=== PATIENT | female | born 1945 | race Caucasian/White ===

== ENCOUNTER 2021-05-23 21:03 | Emergency (ER) | payer MEDICARE, OTHER ==
[~2021-05-23] VITALS: Ht 154.9 cm; Wt 48.5 kg
--- NOTE | 2021-05-23 21:59 | Diagnostic Imaging Report ---
INDICATION: Right lower leg pain. EXAMINATION: AP and lateral views of the right tibia-fibula. No acute fracture or dislocation. Patient has had a prior right knee arthroplasty. IMPRESSION: No acute abnormality is seen in the right lower leg. Dictated by: Dictated on workstation # [id number]
--- NOTE | 2021-05-23 22:23 | ED Lower Extremity ---
General Chief Complaint: Lower Extremity Stated Complaint: R ANKLE INJ Nursing Triage Note: PT TO ROOM FS OF VIA W/C WITH C/O RIGHT ANKLE AND RIGHT EGAN PAIN. PT STATES THAT SHE WAS WALKING AND THE RIGHT LOWER LEG STARTED HURTING. PT DENIES ANY OTHER C/O. PT'S SON IN ROOM Source: patient, family Exam Limitations: no limitations History of Present Illness Date Seen by Provider: May 23, 2021 Time Seen by Provider: 21:10 Initial Comments 76-year-old female with past medical history of dementia coming in with her son due to right ankle pain. The patient states that she twisted her ankle couple days ago and is having right lateral ankle pain that is moderate, intermittent, and worse when she tries to ambulate. She has reportedly been walking. Taking Tylenol for pain. Denies any swelling up her leg, or any previous history of DVT. She is otherwise denying any other acute complaints. She reportedly never fell or hit her head, and did not pass out. She is denying any headache. Per her son, she is at her mental baseline. Allergies and Home Medications Allergies Coded Allergies: No Known Drug Allergies (Unverified , 05/23/21) Patient Home Medication List Home Medication List Reviewed: Yes Review of Systems Constitutional: No fever EENTM: No blurred vision Respiratory: No cough, No short of breath Cardiovascular: No chest pain Gastrointestinal: No abdominal pain Genitourinary: No dysuria, No frequency Musculoskeletal: No back pain; joint pain Skin: No rash Psychiatric/Neurological: Denies Anxiety All Other Systems Reviewed Negative Unless Noted: Yes Past Tnmrqlp-Omuzab-Iimcoy Hx Patient Social History Tobacco Use?: No Smoking Status: Never a Smoker Substance use?: No Alcohol Use?: No Pt feels they are or have been: No Physical Exam Vital Signs Vital Signs - First Documented 05/23/21 21:25 Temp 36.5 Pulse 66 Resp 16 B/P (MAP) 127/55 (79) O2 Delivery Room Air Capillary Refill : Less Than 3 Seconds Height, Weight, BMI Height: '" Weight: lbs. oz. kg; 20.00 BMI Method: General Appearance: WD/WN, no apparent distress HEENT: PERRL/EOMI, normal ENT inspection, pharynx normal Neck: non-tender, full range of motion, supple, normal inspection Cardiovascular: regular rate, rhythm, no edema, no murmur Respiratory: chest non-tender, lungs clear, normal breath sounds, no respiratory distress, no accessory muscle use Gastrointestinal: normal bowel sounds, non tender, soft; No guarding Back: normal inspection Ankles: left ankle non-tender, left ankle normal inspection; bilateral ankle n ormal range of motion (Right ankle tender along the lateral malleolus with maximal tenderness over the ATFL ligament, no tenderness over the proximal fibula, no tibia tenderness, no fifth metatarsal tenderness, no calcaneal tenderness, no Lisfranc tenderness or Achilles tenderness, 5 out of 5 strength with dorsiflexion and plantarflexion on the right foot, normal distal sensation and capillary refill, no peripheral edema or tenderness with calf squeeze); right ankle bone tenderness, right ankle pain, right ankle soft tissue tenderness, right ankle swelling Neurologic/Tendon: normal sensation, normal motor functions Neurologic/Psychiatric: no motor/sensory deficits, alert, normal mood/affect Skin: normal color, warm/dry Lymphatic: no adenopathy Progress/Results/Core Measures Results/Orders My Orders Orders - MARLENA FONTAINE MD Tibia Fibula 2 View Right (05/23/21 21:37) Vital Signs/I&O 05/23/21 21:25 Temp 36.5 Pulse 66 Resp 16 B/P (MAP) 127/55 (79) O2 Delivery Room Air Blood Pressure Mean: 79 Progress Progress Note : Progress Note 76-year-old female with above history coming in after she twisted her right ankle couple days ago. ABCs were intact and vitals were stable on presentation. Maximal tenderness over the ATFL tendon. She does have some tenderness over the lateral malleolus. X-ray ordered and interpreted by me showing no fracture. She was given a boot for comfort. She was able to ambulate without the boot, and I have low concern for occult fracture. Given that the injury was very acute, low concern for DVT as well. Additionally, she does not have any unequal swelling, redness, or calf tenderness. I believe she is stable for discharge. She was sent home with strict return precautions. Diagnostic Imaging Diagonstic Imaging: Xray Plain Films/CT/US/NM/MRI: leg Comments [facility]. [place], [place] NAME: OC IVAN [facility] REC#: [id number] PT STATUS: REG ER : 1945 PHYSICIAN: MARLENA FONTAINE MD ADMIT DATE: 05/23/21/ER FS Signed Date of Exam:05/23/21 TIBIA FIBULA 2 VIEW RIGHT INDICATION: Right lower leg pain. EXAMINATION: AP and lateral views of the right tibia-fibula. No acute fracture or dislocation. Patient has had a prior right knee arthroplasty. IMPRESSION: No acute abnormality is seen in the right lower leg. Dictated by: Dictated on workstation # [id number] Dict: 05/23/212155 Trans: 05/23/212201 E [id number] Interpreted by: SUBHASH FLORES MD Electronically signed by: SUBHASH FLORES MD 05/23/212201 Departure Impression Primary Impression: Right ankle pain Qualified Codes: M25.571 - Pain in right ankle and joints of right foot Disposition: 01 HOME, SELF-CARE Condition: Stable Departure-Patient Inst. Decision time for Depature: 22:22 Referrals: NO,LOCAL PHYSICIAN (PCP/Family) Primary Care Physician Patient Instructions: Ankle Sprain ED Add. Discharge Instructions: You were seen in the emergency department for ankle pain. X-rays were negative for any fracture. We gave you a boot for comfort. You can wear this if it helps you walk. Otherwise try to use a walker and keep off of this leg. If you have any redness or swelling going up your leg then we will need you to be seen in the emergency department again. They have any other concerns then please come back to the ER. All discharge instructions reviewed with patient and/or family. Voiced understanding. MARLENA FONTAINE MD May 23, 2021 22:23
[2021-05-23 22:35] VITALS: BP 119/64
== END 2021-05-23 22:35 | disposition home or self-care (01) ==
LOC: ER FS 21:05
DX: M25.571 Pain in right ankle and joints of right foot (principal)
CPT/HCPCS: 73590

== ENCOUNTER 2022-03-31 10:55 | Emergency (ER) | payer MEDICARE, MEDICAID ==
[~2022-03-31] VITALS: Ht 152.4 cm; Wt 49.9 kg
--- NOTE | 2022-03-31 11:34 | ED General ---
General Chief Complaint: Glucose Problems Nursing Triage Note: PT TO ROOM FS06 [facility]IA [facility] WITH C/O HYPOGLYCEMIA. EMS REPORTS PT BLOOD GLUCOSE OF 39 UPON THEIR ARRIVAL. EMS REPORTS GIVING PT AN AMP OF D50 WHICH RAISED BLOOD GLUCOSE TO 336. PT BLOOD GLUCOSE OF 219 UPON ARRIVAL. EMS STATES PT IS AT BASELINE FUNCTIONING. History of Present Illness Date Seen by Provider: Mar 31, 2022 Time Seen by Provider: 11:31 Initial Comments 77-year-old female [facility] resident has history of dementia. Patient was found unresponsive this morning and was noted to have a blood sugar of 39. She does take glipizide and metformin for diabetes. I am unsure if she took that this morning or not. They did in route to give her D50 and patient is now back at baseline. Blood sugar was over 200 are checked here. There is report that she did fall last night. Patient does complain of pain in the left leg when palpated. She is moving around. Otherwise patient does answer questions but states that she cannot remember things. No chest pain. No trouble breathing. Associated Systoms: Denies Symptoms Allergies and Home Medications Allergies Coded Allergies: No Known Drug Allergies (Unverified , 05/23/21) Patient Home Medication List Home Medication List Reviewed: Yes Review of Systems Review of Systems Constitutional: see HPI Past Rhrytzp-Hifvdc-Wsiogz Hx Patient Social History Tobacco Use?: No Smoking Status: Never a Smoker Smokeless Tobacco Frequency: Never a User Use of E-Cig and/or Vaping dev: No Use of E-Cig and/or Vaping Claudio: Never a User Substance use?: No Alcohol Use?: No Pt feels they are or have been: No Physical Exam Vital Signs Vital Signs - First Documented 03/31/22 03/31/22 11:13 13:29 Temp 36.3 Pulse 75 Resp 15 B/P (MAP) 154/60 (91) Pulse Ox 99 O2 Delivery Room Air Capillary Refill : Less Than 3 Seconds Height, Weight, BMI Height: '" Weight: lbs. oz. kg; 21.00 BMI Method: General Appearance: No Apparent Distress, Anxious, Thin Eyes: Bilateral Eye Normal Inspection, Bilateral Eye PERRL HEENT: Pharynx Normal Neck: Non Tender Respiratory: Lungs Clear, Normal Breath Sounds Cardiovascular: Regular Rate, Rhythm, No Murmur Extremity: Other (tender to palpation over left hip area) Progress/Results/Core Measures Suspected Sepsis SIRS Temperature: Pulse: 75 Respiratory Rate: 15 Laboratory Tests 03/31/22 12:41: White Blood Count 11.4H Blood Pressure 154 /60 Mean: 91 Laboratory Tests 03/31/22 12:41: Creatinine 0.37L, Platelet Count 247, Total Bilirubin 0.6 Results/Orders Lab Results Laboratory Tests Test 03/31/22 11:08 03/31/22 12:41 Range/Units Glucometer 219 H 70-110 MG/DL White Blood Count 11.4 H 4.3-11.0 10^3/uL Red Blood Count 4.34 3.80-5.11 10^6/uL Hemoglobin 13.1 11.5-16.0 g/dL Hematocrit 39 35-52 % Mean Corpuscular Volume 90 80-99 fL Mean Corpuscular Hemoglobin 30 25-34 pg Mean Corpuscular Hemoglobin Concent 34 32-36 g/dL Red Cell Distribution Width 14.3 10.0-14.5 % Platelet Count 247 130-400 10^3/uL Mean Platelet Volume 10.1 9.0-12.2 fL Immature Granulocyte % (Auto) 0 % Neutrophils (%) (Auto) 76 H 42-75 % Lymphocytes (%) (Auto) 15 12-44 % Monocytes (%) (Auto) 8 0-12 % Eosinophils (%) (Auto) 1 0-10 % Basophils (%) (Auto) 0 0-10 % Neutrophils # (Auto) 8.6 H 1.8-7.8 10^3/uL Lymphocytes # (Auto) 1.7 1.0-4.0 10^3/uL Monocytes # (Auto) 0.9 0.0-1.0 10^3/uL Eosinophils # (Auto) 0.1 0.0-0.3 10^3/uL Basophils # (Auto) 0.0 0.0-0.1 10^3/uL Immature Granulocyte # (Auto) 0.0 0.0-0.1 10^3/uL Sodium Level 140 135-145 MMOL/L Potassium Level 3.6 3.6-5.0 MMOL/L Chloride Level 103 98-107 MMOL/L Carbon Dioxide Level 27 21-32 MMOL/L Anion Gap 10 5-14 MMOL/L Blood Urea Nitrogen 6 L 7-18 MG/DL Creatinine 0.37 L 0.60-1.30 MG/DL Estimat Glomerular Filtration Rate 103 BUN/Creatinine Ratio 16 Glucose Level 125 H 70-105 MG/DL Calcium Level 9.2 8.5-10.1 MG/DL Corrected Calcium 9.2 8.5-10.1 MG/DL Total Bilirubin 0.6 0.1-1.0 MG/DL Aspartate Amino Transf (AST/SGOT) 41 H 5-34 U/L Alanine Aminotransferase (ALT/SGPT) 7 0-55 U/L Alkaline Phosphatase 52 40-136 U/L Total Protein 6.4 6.4-8.2 GM/DL Albumin 4.0 3.2-4.5 GM/DL My Orders Orders - ASA NUÑEZ MD Hip 2-3 View Left (03/31/22 11:35) Cbc With Automated Diff (03/31/22 11:35) Comprehensive Metabolic Panel (03/31/22 11:35) Vital Signs/I&O 03/31/22 03/31/22 11:13 13:29 Temp 36.3 Pulse 75 69 Resp 15 17 B/P (MAP) 154/60 (91) 127/73 Pulse Ox 99 O2 Delivery Room Air Room Air Capillary Refill : Less Than 3 Seconds Blood Pressure Mean: 91 Progress Note : Time: 13:17 Progress Note Patient back to baseline. No signs of dehydration. Blood glucose is normal. Does have an appointment with her primary care physician in 2 days. Will discharge back to [facility]. Will have them hold the glipizide for now until she sees her primary care. Diagnostic Imaging Comments [place], [place] NAME: OC IVAN [facility] REC#: [id number] PT STATUS: REG ER : 1945 PHYSICIAN: ASA NUÑEZ MD ADMIT DATE: 03/31/22/ER FS Draft Date of Exam:03/31/22 HIP 2-3 VIEW LEFT INDICATION: Left hip pain AP and frog-leg view of left hip are obtained. There is internal fixation device across the mildly displaced intratrochanteric proximal femoral fracture. There is also stent in the region of the left common femoral vessels. There is diffuse narrowing of the hip joint space. No obvious acute fracture is seen. IMPRESSION: Internally fixed old left intratrochanteric fracture without radiographic evidence of acute abnormality. Dictated on workstation # [id number] Dict: 03/31/22 1156 Trans: 03/31/22 1201 CV [id number] Interpreted by: TERE HOWE MD Electronically signed by: Departure Impression Primary Impression: Hypoglycemia associated with diabetes Additional Impression: Left leg pain Disposition: HOME, SELF-CARE (patient is a resident of a fdc) Condition: Improved Departure-Patient Inst. Decision time for Depature: 13:19 Referrals: NO,LOCAL PHYSICIAN (PCP/Family) Primary Care Physician Patient Instructions: Low Blood Sugar, Adult ED Add. Discharge Instructions: Follow up with primary care as scheduled in 2 days. Please discontinue glipizide until patient is seen by primary care. All discharge instructions reviewed with patient and/or family. Voiced understanding. ASA NUÑEZ MD Mar 31, 2022 11:34
--- NOTE | 2022-03-31 12:01 | Diagnostic Imaging Report ---
INDICATION: Left hip pain AP and frog-leg view of left hip are obtained. There is internal fixation device across the mildly displaced intratrochanteric proximal femoral fracture. There is also stent in the region of the left common femoral vessels. There is diffuse narrowing of the hip joint space. No obvious acute fracture is seen. IMPRESSION: Internally fixed old left intratrochanteric fracture without radiographic evidence of acute abnormality. Dictated by: Dictated on workstation # [id number]
[2022-03-31 12:48] LABS: BASOPHILS % (AUTO) 0 % (0-10); EOSINOPHILS # (AUTO) 0.1 10^3/uL (0.0-0.3); EOSINOPHILS % (AUTO) 1 % (0-10); HEMATOCRIT 39 % (35-52); HEMOGLOBIN 13.1 g/dL (11.5-16.0); LYMPHOCYTES # (AUTO) 1.7 10^3/uL (1.0-4.0); LYMPHOCYTES % (AUTO) 15 % (12-44); MEAN CORPUSCULAR HEMOGLOBIN 30 pg (25-34); MEAN CORPUSCULAR HGB CONC 34 g/dL (32-36); MEAN CORPUSCULAR VOLUME 90 fL (80-99); MEAN PLATELET VOLUME 10.1 fL (9.0-12.2); MONOCYTES # (AUTO) 0.9 10^3/uL (0.0-1.0); MONOCYTES % (AUTO) 8 % (0-12); NEUTROPHILS # (AUTO) 8.6 10^3/uL (1.8-7.8); NEUTROPHILS % (AUTO) 76 % (42-75); PLATELET COUNT 247 10^3/uL (130-400); WHITE BLOOD COUNT 11.4 10^3/uL (4.3-11.0)
[2022-03-31 13:09] LABS: BILIRUBIN,TOTAL 0.6 MG/DL (0.1-1.0); CALCIUM 9.2 MG/DL (8.5-10.1); CREATININE SERUM 0.37 MG/DL (0.60-1.30); POTASSIUM 3.6 MMOL/L (3.6-5.0); TOTAL PROTEIN 6.4 GM/DL (6.4-8.2)
[2022-03-31 13:29] VITALS: BP 127/73
== END 2022-03-31 13:29 ==
LOC: EDUNIT# 10:55 → ER FS 10:58
DX: E11.649 Type 2 diabetes mellitus with hypoglycemia without coma (principal); M79.605 Pain in left leg; Z79.84 Long term (current) use of oral hypoglycemic drugs
CPT/HCPCS: 36415; 73502; 80053; 82947; 85025

== ENCOUNTER 2022-09-06 11:16 | Emergency (ER) | payer MEDICARE, MEDICAID ==
[~2022-09-06] VITALS: Ht 154.9 cm; Wt 45.4 kg
[2022-09-06] MEDS ORDERED: NS IV 1000 ML 1,000 ML IV SCH (11:45)
[2022-09-06] MEDS ORDERED: FAMOTIDINE 20MG/2ML IV (PEPCID) IVP ONE (11:45)
[2022-09-06 11:53] LABS: BILIRUBIN,URINE NEGATIVE (NEGATIVE); CLARITY,URINE CLEAR; COLOR,URINE YELLOW; GLUCOSE, URINE (UA) 3+ (NEGATIVE); KETONES,URINE NEGATIVE (NEGATIVE); LEUKOCYTE ESTERASE ,URINE NEGATIVE (NEGATIVE); NITRITE,URINE NEGATIVE (NEGATIVE); PH,URINE 5.5 (5-9); PROTEIN,URINE NEGATIVE (NEGATIVE)
[2022-09-06 11:55] LABS: BACTERIA,URINE TRACE /HPF
[2022-09-06 11:56] LABS: YEAST,URINE LARGE /HPF
[2022-09-06 12:15] LABS: BASOPHILS % (AUTO) 0 % (0-10); EOSINOPHILS # (AUTO) 0.2 10^3/uL (0.0-0.3); EOSINOPHILS % (AUTO) 2 % (0-10); HEMATOCRIT 38 % (35-52); HEMOGLOBIN 13.3 g/dL (11.5-16.0); LYMPHOCYTES # (AUTO) 1.9 10^3/uL (1.0-4.0); LYMPHOCYTES % (AUTO) 18 % (12-44); MEAN CORPUSCULAR HEMOGLOBIN 31 pg (25-34); MEAN CORPUSCULAR HGB CONC 35 g/dL (32-36); MEAN CORPUSCULAR VOLUME 91 fL (80-99); MEAN PLATELET VOLUME 11.3 fL (9.0-12.2); MONOCYTES # (AUTO) 1.1 10^3/uL (0.0-1.0); MONOCYTES % (AUTO) 10 % (0-12); NEUTROPHILS # (AUTO) 7.3 10^3/uL (1.8-7.8); NEUTROPHILS % (AUTO) 69 % (42-75); PLATELET COUNT 188 10^3/uL (130-400); WHITE BLOOD COUNT 10.6 10^3/uL (4.3-11.0)
[2022-09-06 12:33] LABS: ALBUMIN 3.3 GM/DL (3.2-4.5); BILIRUBIN,TOTAL 0.5 MG/DL (0.1-1.0); CALCIUM 10.3 MG/DL (8.5-10.1); CREATININE SERUM 0.85 MG/DL (0.60-1.30); POTASSIUM 4.6 MMOL/L (3.6-5.0); TOTAL PROTEIN 6.3 GM/DL (6.4-8.2)
--- NOTE | 2022-09-06 12:35 | Diagnostic Imaging Report ---
INDICATION: Chest pain. TECHNIQUE: Single view chest 12:15 PM. CORRELATION STUDY: None FINDINGS: Patient is rotated towards the right. Heart size and mediastinum are prominent and enlarged. There is presence of a TAVR. Pulmonary vasculature within normal limits. The lungs are clear with no consolidating infiltrate. There is no significant effusion or pneumothorax. Surgical clips over the right chest wall. IMPRESSION: 1. Cardiac enlargement without overt failure. Mediastinum is prominent. Somewhat accentuated by rotation. However, ectasia and/or aneurysm of the thoracic aorta not excluded with presence of a TAVR. Dictated by: Dictated on workstation # [id number]
[2022-09-06] MEDS ORDERED: IOHEXOL 350 MG/ML 100 ML (OMNIPAQUE 350) VIAL IV ONE (13:45)
[2022-09-06] MEDS ORDERED: HOLD METFORMIN - RECEIVED CONTRAST 20 ML VIAL IV SCH (13:45)
[2022-09-06] MEDS ORDERED: CATHETER FLUSH 10 ML SYR IV PRN (13:45)
[2022-09-06] MEDS ORDERED: NS 100 ML (IVPB) BAG IV ONE (13:45)
--- NOTE | 2022-09-06 14:21 | Diagnostic Imaging Report ---
PROCEDURE: CT abdomen and pelvis with contrast. TECHNIQUE: Multiple contiguous axial images were obtained through the abdomen and pelvis after administration of intravenous contrast. Auto Exposure Controls were utilized during the CT exam to meet ALARA standards for radiation dose reduction. All CT scans use one or more of the following dose optimizing techniques: Automated exposure control, MA and/or KvP adjustment based on patient size and exam type or iterative reconstruction. INDICATION: 77-year-old female, abdominal pain. CORRELATION STUDY: None. FINDINGS: LOWER THORAX: Heart size appears to be borderline enlarged with small pericardial effusion. TAVR is present with calcification of the mitral valve. Small esophageal hernia. Minimal basilar atelectasis. LIVER: No definitive focal lesion. May be very mild hepatic steatosis. GALLBLADDER: Cholecystectomy. No overt bile duct dilatation. SPLEEN: Unremarkable. PANCREAS: Very mild prominence of the main pancreatic duct. May be minimal calcification of the pancreatic head. ADRENAL GLANDS: Unremarkable. KIDNEYS: Bilateral renal cysts. There is a nrlhkdio-mt-rnjtag severity bilateral hydroureteronephrosis. Appears to be owing to a rather significant distended urinary bladder. Slight asymmetric delayed right nephrogram. No definitive ureteric calcification. ABDOMINAL AORTA: Moderate atherosclerotic plaque in the abdominal aorta with scattered areas of some luminal narrowing. Rather significant calcification of the celiac trunk, superior mesenteric artery, and bilateral renal arteries. Scattered areas of significant narrowing of the common, internal, and external iliac arteries. Iliac artery stents are present. GASTROINTESTINAL TRACT: Asymmetric wall thickening of the pylorus of the stomach. No small bowel obstruction. Moderate stool through the colon. The gastrointestinal tract in the lower abdomen and pelvis is displaced by the distended bladder. Colonic diverticulosis. URINARY BLADDER: Rather markedly distended. Moro of the bladder dome extends to the proximal to the umbilicus. Bladder measures approximately 13.4 cm AP x 14.9 cm transverse x 18 cm craniocaudal. REPRODUCTIVE: Uterus is not visualized, markedly atrophic and/or absent. OSSEOUS STRUCTURES: Internal fixation hardware of the proximal left femur. Mild S-type scoliotic curvature of the thoracolumbar spine. OTHER: None. IMPRESSION: 1. Rather marked urinary bladder distention with resultant rather significant severity hydroureteronephrosis, right slightly greater than left. 2. Extensive atherosclerotic vascular calcifications with various degrees of arterial narrowing. Dictated by: Dictated on workstation # [id number]
--- NOTE | 2022-09-06 14:37 | ED General ---
General Chief Complaint: Glucose Problems Stated Complaint: ELEV GLUCOSE Nursing Triage Note: Patient brought to the ED by her son for chief complaint of elevated glucose and abdominal pain. Patient has dementia and is a resident at [facility]. Source of Information: Patient Exam Limitations: No Limitations History of Present Illness Date Seen by Provider: Sep 06, 2022 Time Seen by Provider: 12:00 Initial Comments Patient is a 77-year-old female senior living patient with history of Parkinson's, dementia and diabetes who presents from senior living with reported blood sugar greater than 500. There is no report of vomiting, fever, chest pain palpitations, shortness of breath, flank pain, leg pain or swelling. History is limited due to the patient's cognitive impairment. Patient's son who is power of epic prelude analyst is present at bedside. Timing/Duration: 4-6 Hours Severity: Moderate Associated Systoms: Other Allergies and Home Medications Allergies Coded Allergies: No Known Drug Allergies (Unverified , 05/23/21) Patient Home Medication List Home Medication List Reviewed: Yes Review of Systems Review of Systems Constitutional: see HPI EENTM: see HPI Respiratory: see HPI Cardiovascular: see HPI Gastrointestinal: see HPI Genitourinary: see HPI : No Musculoskeletal: see HPI Skin: see HPI Psychiatric/Neurological: See HPI Hematologic/Lymphatic: See HPI Immunological/Allergic: see HPI All Other Systems Reviewed Negative Unless Noted: No Past Gnmygkj-Hhqzdy-Fxgpjt Hx Patient Social History Tobacco Use?: No Substance use?: No Alcohol Use?: No Pt feels they are or have been: No Past Medical History Surgery/Hospitalization HX: DM, COPD, HTN, TIA, PVD, neuropathy, dementia, Parkinson's, GERD Physical Exam Vital Signs Vital Signs - First Documented 09/06/22 11:22 Temp 36.9 Pulse 54 Resp 18 B/P (MAP) 137/32 (67) Pulse Ox 94 O2 Delivery Room Air Capillary Refill : Less Than 3 Seconds Height, Weight, BMI Height: '" Weight: lbs. oz. kg; 18.00 BMI Method: General Appearance: WD/WN, Anxious Eyes: Bilateral Eye Normal Inspection, Bilateral Eye PERRL, Bilateral Eye EOMI HEENT: PERRL/EOMI, TMs Normal Neck: Full Range of Motion, Non Tender, Supple Respiratory: Chest Non Tender, Lungs Clear Cardiovascular: Regular Rate, Rhythm Gastrointestinal: Non Tender, Soft Neurologic/Psychiatric: Alert Focused Exam Sepsis Stage: Ruled Out Progress/Results/Core Measures Suspected Sepsis SIRS Temperature: Pulse: 54 Respiratory Rate: 18 Laboratory Tests 09/06/22 12:13: White Blood Count 10.6 Blood Pressure 137 /32 Mean: 67 Laboratory Tests 09/06/22 12:13: Creatinine 0.85, Platelet Count 188, Total Bilirubin 0.5 Results/Orders Lab Results Laboratory Tests Test 09/06/22 11:24 09/06/22 12:13 Range/Units Urine Color YELLOW Urine Clarity CLEAR Urine pH 5.5 5-9 Urine Specific [place] <=1.005 1.016-1.022 Urine Protein NEGATIVE NEGATIVE Urine Glucose (UA) 3+ H NEGATIVE Urine Ketones NEGATIVE NEGATIVE Urine Nitrite NEGATIVE NEGATIVE Urine Bilirubin NEGATIVE NEGATIVE Urine Urobilinogen 0.2 < = 1.0 MG/DL Urine Leukocyte Esterase NEGATIVE NEGATIVE Urine RBC (Auto) NEGATIVE NEGATIVE Urine RBC 10-25 H /HPF Urine WBC NONE /HPF Urine Squamous Epithelial Cells 5-10 /HPF Urine Crystals NONE /LPF Urine Bacteria TRACE /HPF Urine Casts NONE /LPF Urine Mucus NEGATIVE /LPF Urine Yeast LARGE H /HPF Urine Culture Indicated YES White Blood Count 10.6 4.3-11.0 10^3/uL Red Blood Count 4.23 3.80-5.11 10^6/uL Hemoglobin 13.3 11.5-16.0 g/dL Hematocrit 38 35-52 % Mean Corpuscular Volume 91 80-99 fL Mean Corpuscular Hemoglobin 31 25-34 pg Mean Corpuscular Hemoglobin Concent 35 32-36 g/dL Red Cell Distribution Width 12.3 10.0-14.5 % Platelet Count 188 130-400 10^3/uL Mean Platelet Volume 11.3 9.0-12.2 fL Immature Granulocyte % (Auto) 1 % Neutrophils (%) (Auto) 69 42-75 % Lymphocytes (%) (Auto) 18 12-44 % Monocytes (%) (Auto) 10 0-12 % Eosinophils (%) (Auto) 2 0-10 % Basophils (%) (Auto) 0 0-10 % Neutrophils # (Auto) 7.3 1.8-7.8 10^3/uL Lymphocytes # (Auto) 1.9 1.0-4.0 10^3/uL Monocytes # (Auto) 1.1 H 0.0-1.0 10^3/uL Eosinophils # (Auto) 0.2 0.0-0.3 10^3/uL Basophils # (Auto) 0.0 0.0-0.1 10^3/uL Immature Granulocyte # (Auto) 0.1 0.0-0.1 10^3/uL Sodium Level 134 L 135-145 MMOL/L Potassium Level 4.6 3.6-5.0 MMOL/L Chloride Level 95 L 98-107 MMOL/L Carbon Dioxide Level 31 21-32 MMOL/L Anion Gap 8 5-14 MMOL/L Blood Urea Nitrogen 26 H 7-18 MG/DL Creatinine 0.85 0.60-1.30 MG/DL Estimat Glomerular Filtration Rate 70 BUN/Creatinine Ratio 31 Glucose Level 395 H 70-105 MG/DL Calcium Level 10.3 H 8.5-10.1 MG/DL Corrected Calcium 10.9 H 8.5-10.1 MG/DL Total Bilirubin 0.5 0.1-1.0 MG/DL Aspartate Amino Transf (AST/SGOT) 28 5-34 U/L Alanine Aminotransferase (ALT/SGPT) 5 0-55 U/L Alkaline Phosphatase 90 40-136 U/L Total Protein 6.3 L 6.4-8.2 GM/DL Albumin 3.3 3.2-4.5 GM/DL Lipase 28 8-78 U/L My Orders Orders - XUAN BACON DO Cbc With Automated Diff (09/06/22 11:42) Comprehensive Metabolic Panel (09/06/22 11:42) Urinalysis (09/06/22 11:42) Chest 1 View Ap/Pa Only (09/06/22 11:42) Lipase (09/06/22 11:42) Ekg Tracing (09/06/22 11:42) Ns Iv 1000 Ml (Sodium Chloride 0.9%) (09/06/22 11:45) Famotidine Injection (Pepcid Injection) (09/06/22 11:45) Urine Culture (09/06/22 11:24) Ct Abdomen/Pelvis W (09/06/22 12:43) Iohexol Injection (Omnipaque 350 Mg/Ml 1 (09/06/22 13:45) Received Contrast (Hold Metformin- Contr (09/06/22 13:45) Sodium Chloride Flush (Catheter Flush Sy (09/06/22 13:45) Ns (Ivpb) (Sodium Chloride 0.9% Ivpb Bag (09/06/22 13:45) Catheter(Urinary) Care .0300, 1500 (09/06/22 14:38) Medications Given in ED Current Medications Medications Dose Ordered Sig/Kylah Route Start Time Stop Time Status Last Admin Dose Admin Famotidine 20 mg ONCE ONCE IVP 09/06/22 11:45 09/06/22 11:47 DC 09/06/22 11:56 20 MG Iohexol 75 ml ONCE ONCE IV 09/06/22 13:45 09/06/22 13:46 DC 09/06/22 13:58 75 ML Sodium Chloride 10 ml NEEDED PRN IV 09/06/22 13:45 09/06/22 13:58 10 ML Sodium Chloride 100 ml ONCE ONCE IV 09/06/22 13:45 09/06/22 13:46 DC 09/06/22 13:58 100 ML Vital Signs/I&O 09/06/22 11:22 Temp 36.9 Pulse 54 Resp 18 B/P (MAP) 137/32 (67) Pulse Ox 94 O2 Delivery Room Air Capillary Refill : Less Than 3 Seconds Blood Pressure Mean: 67 Departure Communication (Admissions) CT abdomen pelvis: Markedly distended urinary bladder with hydronephrosis Lab and imaging studies reviewed. CT abdomen pelvis suggestive of acute urinary retention but otherwise reassuring. Saavedra catheter placed to treat urinary retention as this may be contributing to abdominal pain. The cause of abdominal pain is otherwise undiagnosed patient's blood sugar did improve in the emergency department with IV fluids alone. Recommendations are for the patient to follow- up with her senior living attending for further glycemic control and management of abdominal pain. Full labs and imaging results discussed with the patient's power of epic prelude analyst who is comfortable with discharge plan. Return precautions reviewed prior to departure. Impression Primary Impression: Hyperglycemia Additional Impressions: Abdominal pain Urinary retention Dementia Disposition: 01 HOME, SELF-CARE Condition: Stable Departure-Patient Inst. Decision time for Depature: 14:35 Referrals: OBI WELLINGTON MD (PCP) Primary Care Physician Patient Instructions: Abdominal Pain, Adult ED, High Blood Sugar, Adult ED, Urinary Retention (DC) Add. Discharge Instructions: Celia was evaluated in the emergency department for elevated blood sugar and abdominal pain. CT abdomen pelvis showed a distended urinary bladder with backed up urinary collecting system. A Saavedra catheter was placed for management. Blood sugar improved with treatment of IV fluids alone. Please contact the patient's PCP and/or senior living attending upon returning to the senior living today for further instructions of glycemic management and set up follow-up appointment for reevaluation of ED visit and urinary retention. All discharge instructions reviewed with patient and/or family. Voiced understanding. XUAN BACON DO Sep 06, 2022 14:37
[2022-09-06 15:12] VITALS: BP 102/83
== END 2022-09-06 15:13 | disposition home or self-care (01) ==
LOC: EDUNIT# 11:16 → ER FS 11:18
DX: E11.65 Type 2 diabetes mellitus with hyperglycemia (principal); F03.90 Unspecified dementia, unspecified severity, without behavioral disturbance, psychotic disturbance, mood disturbance, and anxiety; R33.9 Retention of urine, unspecified
CPT/HCPCS: 36415; 51702; 71045; 74177; 80053; 81000; 82947; 83690; 85025; 87088; 93005; Q9967

== ENCOUNTER 2023-07-30 12:20 | Emergency (ER) | payer MEDICARE, MEDICAID ==
[~2023-07-30 12:20] MED LIST: METF-397 PO; SULF1TAB38 PO
[2023-07-30 12:53] LABS: BASOPHILS # (AUTO) 0.1 10^3/uL (0.0-0.1); BASOPHILS % (AUTO) 1 % (0-10); EOSINOPHILS # (AUTO) 0.4 10^3/uL (0.0-0.3); EOSINOPHILS % (AUTO) 3 % (0-10); HEMATOCRIT 41 % (35-52); LYMPHOCYTES # (AUTO) 2.5 10^3/uL (1.0-4.0); LYMPHOCYTES % (AUTO) 17 % (12-44); MEAN CORPUSCULAR HEMOGLOBIN 30 pg (25-34); MEAN CORPUSCULAR HGB CONC 32 g/dL (32-36); MEAN CORPUSCULAR VOLUME 93 fL (80-99); MEAN PLATELET VOLUME 10.2 fL (9.0-12.2); MONOCYTES # (AUTO) 1.5 10^3/uL (0.0-1.0); MONOCYTES % (AUTO) 10 % (0-12); NEUTROPHILS # (AUTO) 10.6 10^3/uL (1.8-7.8); NEUTROPHILS % (AUTO) 70 % (42-75); PLATELET COUNT 409 10^3/uL (130-400); WHITE BLOOD COUNT 15.1 10^3/uL (4.3-11.0)
[2023-07-30 12:54] LABS: BILIRUBIN,URINE NEGATIVE (NEGATIVE); CLARITY,URINE CLEAR; COLOR,URINE YELLOW; GLUCOSE, URINE (UA) NEGATIVE (NEGATIVE); KETONES,URINE NEGATIVE (NEGATIVE); LEUKOCYTE ESTERASE ,URINE NEGATIVE (NEGATIVE); NITRITE,URINE NEGATIVE (NEGATIVE); PH,URINE 5.5 (5-9); PROTEIN,URINE NEGATIVE (NEGATIVE)
--- NOTE | 2023-07-30 12:58 | ED General ---
General Chief Complaint: Orthopedic Problems Stated Complaint: SENT FROM [facility] Nursing Triage Note: PT TO ROOM FS06 VIA PERSONAL WHEELCHAIR FROM [facility] WITH C/O NECK PAIN AND HEADACHE. REPORT FROM [facility] STATED THAT PT'S DEMENTIA IS WORSENING AND PT "IS DETERIORATING". PT'S FAMILY STATE THAT THEY CAME FROM [facility] FOR A CT TO DETERMINE THE CAUSE OF THE NECK PAIN AND HEADACHE. PT'S FAMILY DENIES INJURY. Source of Information: Patient, Caregiver History of Present Illness Date Seen by Provider: Jul 30, 2023 Time Seen by Provider: 12:45 Initial Comments This is a 78-year-old female who was brought in by her son secondary to main complaint of ongoing neck pain and a headache. Patient and son reports neck pain for at least 3 weeks, has been seeing a chiropractor without much relief. Using no oral medications. Son reports the patient has been sleeping on a love seat at the shelter. There is been no report of injury. Patient has no numbness or tingling. Her headache is diffuse. There are no other neurologic symptoms reported. Patient was supposedly at clinic today and was sent over here for unknown reasons to this provider given the history that is presented to myself. Patient does have dementia, Parkinsons, DM, HTN, and resides in an assisted living facility. She has been coughing for approximate 1 week and feels weaker than normal. Allergies and Home Medications Allergies Coded Allergies: No Known Drug Allergies (Unverified , 05/23/21) Patient Home Medication List Home Medication List Reviewed: Yes Metformin HCl (Metformin HCl) 500 Mg Tablet, 500 MG PO BID Prescribed by: MARLENA FONTAINE on 09/13/225 Sulfamethoxazole/Trimethoprim (Bactrim Ds Tablet) 1 Each Tablet, 1 EACH PO BID Prescribed by: MARLENA FONTAINE on 09/13/225 Review of Systems Review of Systems Constitutional: no symptoms reported, see HPI (All other systems negative except as documented in HPI.) Past Cfweqbz-Clywup-Nsczme Hx Patient Social History Tobacco Use?: Yes Tobacco type used: Cigarettes Smoking Status: Current Everyday Smoker Smokeless Tobacco Frequency: Never a User Use of E-Cig and/or Vaping dev: No Use of E-Cig and/or Vaping Claudio: Never a User Substance use?: No Alcohol Use?: No Pt feels they are or have been: No Past Medical History Surgery/Hospitalization HX: dementia and DM. Surgeries: No Physical Exam Vital Signs Vital Signs - First Documented 07/30/23 12:20 Temp 37.3 Pulse 66 Resp 16 B/P (MAP) 141/57 (85) O2 Delivery Room Air Capillary Refill : Less Than 3 Seconds Height, Weight, BMI Height: '" Weight: lbs. oz. kg; 19.00 BMI Method: General Appearance: No Apparent Distress, Other (Weak/frail) Eyes: Bilateral Eye Normal Inspection, Bilateral Eye PERRL, Bilateral Eye EOMI HEENT: PERRL/EOMI, TMs Normal, Normal ENT Inspection, Pharynx Normal Neck: Normal Inspection, Supple, Carotid Bruit, Other (Limited range of motion secondary to pain. There is bilateral paracervical muscle spasm and left trapezius spasm with tenderness.) Respiratory: Chest Non Tender, Lungs Clear, Normal Breath Sounds, No Accessory Muscle Use, No Respiratory Distress Cardiovascular: Regular Rate, Rhythm, No Edema, No Gallop, No JVD, No Murmur, Normal Peripheral Pulses Gastrointestinal: Normal Bowel Sounds, No Organomegaly, No Pulsatile Mass, Non Tender, Soft Back: Normal Inspection, No CVA Tenderness, No Vertebral Tenderness Extremity: Normal Capillary Refill, Normal Inspection, Normal Range of Motion, Non Tender, No Calf Tenderness, No Pedal Edema Neurologic/Psychiatric: Alert, No Motor/Sensory Deficits, Normal Mood/Affect Skin: Normal Color, Warm/Dry Lymphatic: No Adenopathy Progress/Results/Core Measures Suspected Sepsis SIRS Temperature: Pulse: 66 Respiratory Rate: 16 Laboratory Tests 07/30/23 12:30: White Blood Count 15.1H Blood Pressure 141 /57 Mean: 85 Laboratory Tests 07/30/23 12:30: Creatinine 0.60, Platelet Count 409H Results/Orders Lab Results Laboratory Tests Test 07/30/23 12:23 07/30/23 12:30 07/30/23 12:56 Range/Units Urine Color YELLOW Urine Clarity CLEAR Urine pH 5.5 5-9 Urine Specific [place] 1.015 L 1.016-1.022 Urine Protein NEGATIVE NEGATIVE Urine Glucose (UA) NEGATIVE NEGATIVE Urine Ketones NEGATIVE NEGATIVE Urine Nitrite NEGATIVE NEGATIVE Urine Bilirubin NEGATIVE NEGATIVE Urine Urobilinogen 0.2 < = 1.0 MG/DL Urine Leukocyte Esterase NEGATIVE NEGATIVE Urine RBC (Auto) NEGATIVE NEGATIVE Urine RBC NONE /HPF Urine WBC 0-2 /HPF Urine Crystals NONE /LPF Urine Bacteria TRACE /HPF Urine Casts PRESENT /LPF Urine Hyaline Casts 5-10 H /LPF Urine Mucus SMALL H /LPF Urine Culture Indicated NO White Blood Count 15.1 H 4.3-11.0 10^3/uL Red Blood Count 4.38 3.80-5.11 10^6/uL Hemoglobin 13.0 11.5-16.0 g/dL Hematocrit 41 35-52 % Mean Corpuscular Volume 93 80-99 fL Mean Corpuscular Hemoglobin 30 25-34 pg Mean Corpuscular Hemoglobin Concent 32 32-36 g/dL Red Cell Distribution Width 13.2 10.0-14.5 % Platelet Count 409 H 130-400 10^3/uL Mean Platelet Volume 10.2 9.0-12.2 fL Immature Granulocyte % (Auto) 0 % Neutrophils (%) (Auto) 70 42-75 % Lymphocytes (%) (Auto) 17 12-44 % Monocytes (%) (Auto) 10 0-12 % Eosinophils (%) (Auto) 3 0-10 % Basophils (%) (Auto) 1 0-10 % Neutrophils # (Auto) 10.6 H 1.8-7.8 10^3/uL Lymphocytes # (Auto) 2.5 1.0-4.0 10^3/uL Monocytes # (Auto) 1.5 H 0.0-1.0 10^3/uL Eosinophils # (Auto) 0.4 H 0.0-0.3 10^3/uL Basophils # (Auto) 0.1 0.0-0.1 10^3/uL Immature Granulocyte # (Auto) 0.1 0.0-0.1 10^3/uL Neutrophils % (Manual) 59 % Lymphocytes % (Manual) 34 % Monocytes % (Manual) 6 % Eosinophils % (Manual) 1 % Basophils % (Manual) 0 % Band Neutrophils 0 % Blood Morphology Comment NORMAL Sodium Level 137 135-145 MMOL/L Potassium Level 4.6 3.6-5.0 MMOL/L Chloride Level 99 98-107 MMOL/L Carbon Dioxide Level 25 21-32 MMOL/L Anion Gap 13 5-14 MMOL/L Blood Urea Nitrogen 20 H 7-18 MG/DL Creatinine 0.60 0.60-1.30 MG/DL Estimat Glomerular Filtration Rate 91 BUN/Creatinine Ratio 33 Glucose Level 202 H 70-105 MG/DL Calcium Level 9.7 8.5-10.1 MG/DL Influenza Type A (RT-PCR) Not Detected Not Detecte Influenza Type B (RT-PCR) Not Detected Not Detecte SARS-CoV-2 RNA (RT-PCR) Not Detected Not Detecte My Orders Orders - TIFFANY VALENCIA DO Cbc And Automated Diff (07/30/23 12:44) Basic Metabolic Panel (07/30/23 12:44) Ua Culture If Indicated (07/30/23 12:44) Ed Iv/Invasive Line Start (07/30/23 12:48) Chest 1 View Ap/Pa Only (07/30/23 12:53) Covid 19 Inhouse Test (07/30/23 12:53) Influenza A And B By Pcr (07/30/23 12:53) Manual Differential (07/30/23 12:30) Ns Iv 500 Ml (Ns Iv 500 Ml) (07/30/23 13:30) Prednisone Tablet (Prednisone Tablet) (07/30/23 14:00) Sulfamethoxazole/Tmp Ds Tablet (Sulfamet (07/30/23 14:00) Vital Signs/I&O 07/30/23 12:20 Temp 37.3 Pulse 66 Resp 16 B/P (MAP) 141/57 (85) O2 Delivery Room Air Capillary Refill : Less Than 3 Seconds Blood Pressure Mean: 85 Progress Note : Time: 12:57 Progress Note This patient is seen for main complaint of neck pain that appears to be musculoskeletal in nature. There is no history of injury. We will start the patient on low-dose steroids, muscle relaxer and anti-inflammatory. Also obtain chest x-ray and COVID/flu secondary to cough x1 week, check basic labs and urinalysis. 1359: Patient's work-up was completed and shows leukocytosis of unknown significance. Her chest x-ray is unremarkable her urinalysis shows trace bacteria only. BMP is normal and COVID and flu are negative. Patient has been given a 500 cc bolus of normal saline. Vital signs are stable. Will start low- dose steroids to help with her neck pain and also help with her cough. Start Bactrim twice daily for 1 week to clear up any urinary tract infection and any underlying early pneumonia that is not present on chest x-ray. Flexeril at night as needed. Aleve as needed. Departure Impression Primary Impression: Cervical paraspinal muscle spasm Additional Impressions: Bronchitis Urinary tract infection Disposition: 01 HOME, SELF-CARE Condition: Stable Departure-Patient Inst. Decision time for Depature: 14:00 Referrals: OBI WELLINGTON MD (PCP/Family) Primary Care Physician Patient Instructions: Muscle Spasms (DC) Scripts Cyclobenzaprine HCl (Cyclobenzaprine HCl) 5 Mg Tablet 5 MG PO HS for Muscle Spasms for 10 Days, #10 TAB Prov: TIFFANY VALENCIA DO 07/30/23 Prednisone (Prednisone) 20 Mg Tab 20 MG PO DAILY for 4 Days, #4 TAB 0 Refills Prov: TIFFANY VALENCIA DO 07/30/23 Sulfamethoxazole/Trimethoprim (Bactrim Ds Tablet) 1 Each Tablet 1 EACH PO BID for 7 Days, #14 TAB Prov: TIFFANY VALENCIA DO 07/30/23 TIFFANY VALECNIA DO Jul 30, 2023 12:58
[2023-07-30 13:07] LABS: BACTERIA,URINE TRACE /HPF; WBC,URINE 0-2 /HPF
[2023-07-30 13:08] LABS: CREATININE SERUM 0.6 MG/DL (0.60-1.30); POTASSIUM 4.6 MMOL/L (3.6-5.0)
[2023-07-30 13:09] LABS: CALCIUM 9.7 MG/DL (8.5-10.1)
[2023-07-30] MEDS ORDERED: NS IV 500 ML 500 ML IV SCH (13:30)
--- NOTE | 2023-07-30 13:37 | Diagnostic Imaging Report ---
INDICATION: Cough. Frontal chest obtained at 12:54 p.m. and compared with 09/06/2022. 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 There is central vascular congestion without cathie edema. There is no consolidation or pneumothorax or pleural fluid. There are surgical clips in the right axilla. 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 Mild central vascular congestion without edema or consolidation or pleural fluid. Dictated by: Dictated on workstation # [id number]
[2023-07-30 13:51] LABS: BAND NEUTROPHILS 0 %; BASOPHILS % (MANUAL) 0 %; EOSINOPHILS % (MANUAL) 1 %; LYMPHOCYTES % (MANUAL) 34 %; MONOCYTES % (MANUAL) 6 %; NEUTROPHILS % (MANUAL) 59 %
[2023-07-30 13:53] LABS: RBC MORPH NORMAL
[2023-07-30] MEDS ORDERED: predniSONE 20 MG TABLET PO ONE (14:00)
[2023-07-30] MEDS ORDERED: Sulfamethoxazole/Trimethoprim DS TABLET PO ONE (14:00)
[2023-07-30] MEDS ORDERED: CYCL5TAB PO (14:04)
[2023-07-30] MEDS ORDERED: PRD20T PO (14:04)
[2023-07-30] MEDS ORDERED: SULF1TAB38 PO (14:04)
[2023-07-30 14:19] VITALS: BP 124/65
== END 2023-07-30 14:19 | disposition home or self-care (01) ==
LOC: EDUNIT# 12:20 → ER FS 12:22
DX: M62.838 Other muscle spasm (principal); J40 Bronchitis, not specified as acute or chronic; N39.0 Urinary tract infection, site not specified; F17.210 Nicotine dependence, cigarettes, uncomplicated
CPT/HCPCS: 36415; 71045; 80048; 81000; 85007; 85027; 87636; 96360